=== PATIENT | female | born 1995 | race Caucasian/White ===

== ENCOUNTER 2022-09-30 16:45 | Emergency (ER) | payer MEDICAID ==
[~2022-09-30] VITALS: Ht 157.5 cm; Wt 55.9 kg
[2022-09-30 16:58] VITALS: BP 101/65
== END 2022-09-30 18:26 | disposition left against medical advice (07) ==
LOC: EMS 16:45
DX: R52 Pain, unspecified (principal); R50.9 Fever, unspecified; Z53.21 Procedure and treatment not carried out due to patient leaving prior to being seen by health care provider
CPT/HCPCS: 99281; Z7502